=== PATIENT | female | born 1995 | race Caucasian/White ===

== ENCOUNTER 2019-12-09 09:57 | Emergency (ER) | payer OTHER ==
[~2019-12-09] VITALS: Ht 160 cm; Wt 68.0 kg
[2019-12-09 10:17] VITALS: BP 115/71
[2019-12-09] MEDS ORDERED: KETOROLAC TROMETH 60MG/2ML VIAL IM ONE (10:30)
== END 2019-12-09 11:12 | disposition home or self-care (01) ==
LOC: ER 09:57
DX: M25.512 Pain in left shoulder (principal); F41.9 Anxiety disorder, unspecified
CPT/HCPCS: 73030; 81025; 96372; 99283; J1885